=== PATIENT | male | born 1990 | race Caucasian/White ===

== ENCOUNTER 2025-05-07 21:04 | Emergency (ER) | payer BC, SELFPAY ==
[2025-05-07] VITALS (52 sets, daily range): BP systolic 124–147; BP diastolic 69–101; PULSE 63–90; RESP 18; TEMP 36.3–36.6; O2SAT 92–98
--- NOTE | 2025-05-07 21:15 | W.ED.GENAD ---
Discharge Plan Disposition Patient Disposition: Home Condition: Stable Discharge Details Clinical Impression: Allergic reaction Primary Care Provider: Unknown,Unknown ED Provider: Jhonny Lynn Home Meds and New Rx's Prescriptions: No Action No Known Home Meds Discharge Instructions Instructions: Prednisone, Allergic Reaction ED Additional Instructions: You were seen in the emergency department for your significant allergic reaction, you took Claritin prior to arrival-this is good but you do need to add some further antihistamines. Please purchase [id number] famotidine/Pepcid, when you have an allergic reaction take 40 mg of this, purchase [id number] Benadryl and take 25 or 50 mg of Benadryl at first sign of reaction. I have sent you home with 40 mg of prednisone to take as well. Take what ever Claritin/Liliana/Zyrtec you have on hand 10 to 20 mg and use the albuterol inhaler for any shortness of breath, present to the emergency department should this not improve your syndrome or you are having any trouble swallowing or wheezing or worsening despite treatment, or nausea. Stand Alone Forms: School Release Discharge Data Discharge Date/Time-TO BE ENTERED AT DEPARTURE: 05/07/25 22:16 HPI General Date/Time Provider Initiated Documentation: 05/07/25 21:15. HPI Narrative: 35 year-old male presents to ED today by POV/ambulating with his with a chief complaint of hives and facial swelling, unknown allergen with onset 90 minutes ago. Quality described as had significant facial swelling and hives spreading down his neck without any known allergen ingestion, no radiation to current neck swelling, wheezing, nausea or vomiting, dizziness or syncope. Severity is described as severe. Palliating factors include took Claritin 60 minutes ago with some improvement. Provoking factors include nothing specific. Events leading up to the incident/Associated Symptoms: Patient has had this reaction in the past usually once every few to 6 months but does not know what is causing it. Patient not anticoagulated. Related Data Home Medications Medication Instructions Recorded Confirmed Unknown [No Known Home Meds] 05/07/25 05/07/25 Allergies Allergy/AdvReac Type Severity Reaction Status Date / Time No Known Allergies Allergy Unverified 05/07/25 21:10 General Stated Complaint: Allergic HAKEEM: 3 Review of Systems All systems reviewed & are unremarkable except as noted in HPI and below Exam Narrative Exam Narrative: GENERAL APPEARANCE: Well-nourished, non-toxic, awake and alert, atraumatic, no acute distress. SKIN: Warm, pink, dry, facial puffiness without hives or urticaria, no Broderick's angina or angioedema HEAD: Normocephalic, atraumatic, normal hair distribution for gender/age. EYES: Normal conjunctiva, no exudates on lids/lashes. ENT: Nares patent, no circumoral cyanosis, no facial swelling NECK: Supple, trachea midline, painless cervical ROM. LUNGS/CHEST: Lungs CTA bilaterally-no wheezing, non-labored respirations, normal A/P diameter, symmetrical expansion, no chest wall deformity HEART (CV/PV): Regular rate and rhythm without murmur, no peripheral edema, no JVD. ABDOMEN: Soft, non-distended, no guarding. MSK: Normal ROM, no swelling/deformity to bilateral UEs or LEs, moving all extremities without weakness, no cyanosis, spine midline without tenderness, normal curvature. NEURO: Mental Status AAOx4 - alert to person, place, time, events No facial droop, no forehead involvement. Motor: No focal weakness - strength 5/5 in bilateral UEs and LEs, proximal and distal, symmetric. Sensory: sensation intact to light touch globally. Gait normal: patient ambulated without ataxia into ED room. PSYCH: euthymic, cooperative, pleasant, appropriate speech Course Vital Signs Vital signs: Vital Signs Temperature 36.3 C L 05/07/25 21:06 Pulse 80 05/07/25 21:06 Respiratory Rate 18 05/07/25 21:06 Blood Pressure 147/80 H 05/07/25 21:06 Pulse Oximetry 96 05/07/25 21:06 Temperature 36.3 C L 05/07/25 21:06 Pulse 80 05/07/25 21:06 Respiratory Rate 18 05/07/25 21:06 Respiratory Effort Normal 05/07/25 21:13 Respiratory Pattern Normal 05/07/25 21:13 Blood Pressure 147/80 H 05/07/25 21:06 Pulse Oximetry 96 05/07/25 21:06 Oxygen Delivery Method Room Air 05/07/25 21:06 Oxygen Flow Rate 0 05/07/25 21:06 Pain Level 0 05/07/25 21:06 Medical Decision Making This dictation utilizes [id number] dictation software and may contain unedited grammatical errors. 35 year-old male presents to ED today by POV/ambulating with his with a chief complaint of hives and facial swelling, unknown allergen with onset 90 minutes ago. Quality described as had significant facial swelling and hives spreading down his neck without any known allergen ingestion, no radiation to current neck swelling, wheezing, nausea or vomiting, dizziness or syncope. Severity is described as severe. Palliating factors include took Claritin 60 minutes ago with some improvement. Provoking factors include nothing specific. Events leading up to the incident/Associated Symptoms: Patient has had this reaction in the past usually once every few to 6 months but does not know what is causing it. Patients' medical history: Negative, otherwise healthy. Family and social history: Eats a normal diet. Pertinent exam findings / vital signs include facial redness and puffiness consistent with allergic conjunctivitis, no lip or tongue swelling, what ever hives he had had prior to arrival are resolved by time of arrival, no wheezing. Differential / pathologies of concern include allergic reaction. Diagnostic studies of: - None. Interventions of: - 25 mg p.o. Benadryl, 40 mg p.o. famotidine, 125 IM Solu-Medrol, albuterol inhaler to go, 40 mg prednisone to go. ED Course/Assessment/Plan: 35-year-old male otherwise healthy presents with allergic reaction with facial puffiness, has had this reaction before but allergen is unknown, he has no respiratory distress, no Broderick's or angioedema, no multisystem complaints he was given further antihistamines and steroids to go and I recommend he follow-up with an bed rubber. Findings not consistent with anaphylaxis. Disposition of allergic reaction. Patient verbalized understanding of the plan and return to ED criteria and engaged in shared decision making. Medical Records Medical records reviewed: Yes I reviewed the patient's medical records. PFSH All Active Problems (Updated 05/07/25 @ 21:42 by JENAE Okeefe) Allergic reaction (Acute) Social History Smoking/Tobacco Use Status: Never Smoking risk assessment performed?: Yes Alcohol Intake: never Drug use: Occasionally Substance use type: marijuana Housing: house Do you feel safe at home: Yes Do you feel safe in your relationship?: Yes
[2025-05-07] MEDS: methylPREDNISolone SUCC 125 MG VIAL IM (21:32)
[2025-05-07] MEDS: Albuterol HFA 8 GM 60 PUFF INH IH (21:32)
[2025-05-07] MEDS: diphenhydrAMINE 25 MG CAP PO (21:32)
[2025-05-07] MEDS: Famotidine 20 MG TAB 40 MG PO (21:32)
[2025-05-07] MEDS: predniSONE 20 MG TAB 40 MG PO (22:11)
== END 2025-05-07 22:16 | disposition home or self-care (01) ==
LOC: ER 22:27
PROVIDERS: Emergency Provider Physician Assistant
DX: T78.40XA Allergy, unspecified, initial encounter (principal)
CPT/HCPCS: 96372; 99284; 99283; J2919; J7512

== ENCOUNTER → 2025-06-30 14:28 | Outpatient (CLI) | payer BC, SELFPAY ==
--- NOTE | 2025-06-30 | DI.RAD_ITS ---
Exam(s) XR WRIST RT COMPL NAVICULAR EXAM: XR WRIST RT COMPL NAVICULAR CLINICAL HISTORY: pain rt wrist, M25.531. TECHNIQUE: 2D digital imaging was performed. Three views. COMPARISON: No exams were available for comparison FINDINGS: BONES: No acute fracture is present. No bony destructive lesion is seen. JOINTS: The carpal bones are normally aligned. SOFT TISSUE: Normal. IMPRESSION: Unremarkable radiographs of the right wrist. DATA REPOSITORY: RADIATION DOSE DELIVERED:
== END ==
LOC: DI 14:29
PROVIDERS: Visit Provider Physician Assistant Medical
DX: M25.531 Pain in right wrist (principal)
CPT/HCPCS: 73110